=== PATIENT | female | born 1995 | race Caucasian/White ===

== ENCOUNTER 2017-08-23 18:05 | Emergency (ER) | payer MEDICAID ==
[2017-08-23] MEDS: SOD CHLORIDE 0.9% 1,000 ML IV (19:47)
[2017-08-23] MEDS: ONDANSETRON 4 MG INJ IV (19:47)
[2017-08-23 19:48] LABS: ADD MAN DIFF? NO
[2017-08-23] MEDS: morphine 4 MG/ML VIAL IV (19:48)
[2017-08-23 19:51] LABS: WHITE BLOOD COUNT 13.1 10^3/ul (4.8-10.8)
[2017-08-23 19:51] LABS: BASOPHIL # 0.1 10^3/ul (0.0-0.1); BASOPHILS % 0.4 % (0.0-2.0); EOSINOPHILS # 0.5 10^3/ul (0.0-0.5); EOSINOPHILS % 3.5 % (0.0-7.0); HEMOGLOBIN 12.9 g/dl (12.0-16.0); LYMPHOCYTES # 2.1 10^3/ul (0.8-2.9); LYMPHOCYTES % 15.8 % (18.0-55.0); MEAN CORPUSCULAR HEMOGLOBIN 26.5 pg (29.0-33.0); MEAN CORPUSCULAR HGB CONC 33.9 g/dl (32.0-37.0); MEAN CORPUSCULAR VOLUME 78.2 fl (72.0-104.0); MEAN PLATELET VOLUME 8.9 fl (7.4-10.4); MONOCYTE # 0.6 10^3/ul (0.3-0.9); MONOCYTES % 4.6 % (0.0-13.0); NEUTROPHIL # 9.9 10^3/ul (1.6-7.5); NEUTROPHILS % 75.4 % (30.0-74.0); PLATELET COUNT 321 10^3/UL (140-415); RED BLOOD COUNT 4.86 10^6/ul (4.20-5.40)
[2017-08-23 19:53] LABS: ADD UMIC YES; UR ASCORBIC ACID NEGATIVE (NEGATIVE); UR BACTERIA FEW /HPF (NONE SEEN); UR BILIRUBIN (Dip) NEGATIVE (NEGATIVE); UR BLOOD (Dip) NEGATIVE (NEGATIVE); UR CLARITY CLEAR (CLEAR); UR COLOR YELLOW (YELLOW); UR GLUCOSE (Dip) NEGATIVE (NEGATIVE); UR KETONES (Dip) 1+ mg/dL (NEGATIVE); UR LEUKOCYTE ESTERASE (Dip) TRACE Leu/ul (NEGATIVE); UR MUCUS FEW /HPF (NONE SEEN); UR NITRITE (Dip) NEGATIVE (NEGATIVE); UR RBC 1 /HPF (0-5); UR SPECIFIC GRAVITY (Dip) 1.026 (1.003-1.030); UR TOTAL PROTEIN (Dip) NEGATIVE (NEGATIVE); UR UROBILINOGEN (Dip) NEGATIVE (NEGATIVE); UR WBC 4 /HPF (0-5)
[2017-08-23 20:07] LABS: ALANINE AMINOTRANSFERASE 32 IU/L (13-69); ALBUMIN/GLOBULIN RATIO 1.42; ALKALINE PHOSPHATASE 162 IU/L (42-121); ANION GAP 17 (8-16); ASPARTATE AMINO TRANSFERASE 21 IU/L (15-46); BILIRUBIN,INDIRECT 0.2 mg/dl (0-1.1); BILIRUBIN,TOTAL 0.2 mg/dl (0.2-1.3); BLOOD UREA NITROGEN 17 mg/dl (7-20); CALCIUM 9.5 mg/dl (8.4-10.2); CARBON DIOXIDE 26 mmol/L (21-31); CHLORIDE 104 mmol/L (97-110); CREATININE 0.79 mg/dl (0.44-1.00); GLUCOSE 97 mg/dl (70-220); LIPASE 144 U/L (23-300); POTASSIUM 4.1 mmol/L (3.5-5.1); SODIUM 143 mmol/L (135-144); TOTAL PROTEIN 8.5 g/dl (6.1-8.1)
== END 2017-08-23 21:40 | disposition home or self-care (01) ==
LOC: FTE 18:05
DX: K80.20 Calculus of gallbladder without cholecystitis without obstruction (principal)
CPT/HCPCS: 36415; 76705; 80053; 81001; 81025; 83690; 85025; 96374; 96375; 99285-25

== ENCOUNTER 2017-12-24 06:06 | Inpatient (IN) | payer MEDICAID ==
[2017-12-24] MEDS: FAMOTIDINE 20 MG INJ IV (06:45)
[2017-12-24] MEDS: morphine 4 MG/ML VIAL IV (06:45)
[2017-12-24] MEDS: ONDANSETRON 4 MG INJ IV ×2 (06:46→13:38)
[2017-12-24 06:54] LABS: ADD MAN DIFF? NO
[2017-12-24 06:57] LABS: WHITE BLOOD COUNT 16.4 10^3/ul (4.8-10.8)
[2017-12-24 06:57] LABS: BASOPHILS % 0.2 % (0.0-2.0); EOSINOPHILS # 0.3 10^3/ul (0.0-0.5); HEMATOCRIT 41.7 % (37.0-47.0); HEMOGLOBIN 13.7 g/dl (12.0-16.0); LYMPHOCYTES # 1.8 10^3/ul (0.8-2.9); LYMPHOCYTES % 10.7 % (18.0-55.0); MEAN CORPUSCULAR HEMOGLOBIN 27.2 pg (29.0-33.0); MEAN CORPUSCULAR HGB CONC 32.9 g/dl (32.0-37.0); MEAN CORPUSCULAR VOLUME 82.9 fl (72.0-104.0); MEAN PLATELET VOLUME 9.4 fl (7.4-10.4); MONOCYTE # 0.8 10^3/ul (0.3-0.9); MONOCYTES % 4.7 % (0.0-13.0); NEUTROPHIL # 13.4 10^3/ul (1.6-7.5); PLATELET COUNT 333 10^3/UL (140-415); RED BLOOD COUNT 5.03 10^6/ul (4.20-5.40); RED CELL DISTRIBUTION WIDTH 13.1 % (11.5-14.5)
[2017-12-24 07:01] LABS: ADD UMIC NO; UR ASCORBIC ACID NEGATIVE (NEGATIVE); UR BILIRUBIN (Dip) NEGATIVE (NEGATIVE); UR BLOOD (Dip) NEGATIVE (NEGATIVE); UR CLARITY CLEAR (CLEAR); UR COLOR YELLOW (YELLOW); UR GLUCOSE (Dip) NEGATIVE (NEGATIVE); UR KETONES (Dip) NEGATIVE (NEGATIVE); UR LEUKOCYTE ESTERASE (Dip) NEGATIVE Leu/ul (NEGATIVE); UR NITRITE (Dip) NEGATIVE (NEGATIVE); UR SPECIFIC GRAVITY (Dip) 1.021 (1.003-1.030); UR TOTAL PROTEIN (Dip) NEGATIVE (NEGATIVE); UR UROBILINOGEN (Dip) NEGATIVE (NEGATIVE)
[2017-12-24 07:20] LABS: ALANINE AMINOTRANSFERASE 49 IU/L (13-69); ALBUMIN/GLOBULIN RATIO 1.72; ALKALINE PHOSPHATASE 132 IU/L (42-121); ANION GAP 14 (8-16); ASPARTATE AMINO TRANSFERASE 94 IU/L (15-46); BILIRUBIN,INDIRECT 0.5 mg/dl (0-1.1); BILIRUBIN,TOTAL 0.5 mg/dl (0.2-1.3); BLOOD UREA NITROGEN 10 mg/dl (7-20); CALCIUM 9.5 mg/dl (8.4-10.2); CARBON DIOXIDE 26 mmol/L (21-31); CHLORIDE 110 mmol/L (97-110); CREATININE 0.69 mg/dl (0.44-1.00); GLUCOSE 111 mg/dl (70-220); LIPASE 141 U/L (23-300); POTASSIUM 3.8 mmol/L (3.5-5.1); SODIUM 146 mmol/L (135-144); TOTAL PROTEIN 7.9 g/dl (6.1-8.1)
[2017-12-24] MEDS: SOD CHLORIDE 0.9% 1,000 ML IV ×4 (07:44→13:43)
[2017-12-24] MEDS: PIPER-TAZO 3.375 GM IV (PMX) 100 ML IVPB ×3 (08:52→21:51)
[2017-12-24] MEDS ORDERED: ONDANSETRON 4 MG INJ IV (09:30)
[2017-12-24] MEDS ORDERED: ACETAMINOPHEN 325 MG TAB PO (09:30)
[2017-12-24] MEDS ORDERED: NACL 0.9% 3 ML SYG IV (10:00)
[2017-12-24 11:09] LABS: CHOLESTEROL 116 mg/dl (100-200)
[2017-12-24 11:09] LABS: CHOL/HDL RATIO 2.2 RATIO; HDL CHOLESTEROL 51 mg/dl (33-83); LDL CHOLESTEROL,CALCULATED 56 mg/dl; TRIGLYCERIDES 47 mg/dl (0-149)
[2017-12-24 11:15] LABS: HEMOGLOBIN A1C 5.1 % (0-5.9)
[2017-12-24] MEDS: morphine 2 MG INJ IV (13:38)
[2017-12-24 14:00] LABS: FREE T4 (FREE THYROXINE) 1.24 ng/dl (0.79-2.35)
[2017-12-24] MEDS ORDERED: ROCURONIUM 50 MG INJ (21:55)
[2017-12-24] MEDS ORDERED: CEFAZOLIN 1 GM INJ (21:55)
[2017-12-24] MEDS ORDERED: PROPOFOL 20 ML (21:55)
[2017-12-24] MEDS ORDERED: ROPIVACAINE 0.2% 20 ML VIAL (21:56)
[2017-12-24] MEDS ORDERED: FENTAnyl 50 MCG/ML VIAL (21:56)
[2017-12-24] MEDS ORDERED: MIDAZOLAM 1 MG/ML 2 ML INJ (21:56)
[2017-12-25] MEDS ORDERED: FENTAnyl 50 MCG/ML VIAL (00:13)
[2017-12-25] MEDS ORDERED: ONDANSETRON 4 MG INJ (00:31)
[2017-12-25] MEDS ORDERED: METOCLOPRAMIDE 10 MG INJ (00:31)
[2017-12-25] MEDS ORDERED: DEXAMETHASONE 4 MG/ML 1 ML INJ (00:32)
[2017-12-25] MEDS ORDERED: KETOROLAC 30 MG INJ (00:32)
[2017-12-25] MEDS ORDERED: GLYCOPYRROLATE 0.4 MG INJ (00:54)
[2017-12-25] MEDS ORDERED: NEOSTIGMINE 3 MG/3 ML SYRINGE (00:54)
[2017-12-25] MEDS ORDERED: ACETAMINOPHEN 1000MG/100ML IV 100 ML (01:21)
[2017-12-25] MEDS: ACETAMINOPHEN 1000MG/100ML IV 100 ML IVPB (01:29)
[2017-12-25] MEDS: ONDANSETRON 4 MG INJ IV (01:30)
[2017-12-25] MEDS: SOD CHLORIDE 0.9% 1,000 ML IV (02:29)
[2017-12-25] MEDS: morphine 2 MG INJ IV ×3 (04:35→09:09)
[2017-12-25 05:31] LABS: ADD MAN DIFF? NO
[2017-12-25 05:34] LABS: BASOPHILS % 0.2 % (0.0-2.0); HEMATOCRIT 38.4 % (37.0-47.0); HEMOGLOBIN 12.6 g/dl (12.0-16.0); LYMPHOCYTES # 0.6 10^3/ul (0.8-2.9); LYMPHOCYTES % 5.2 % (18.0-55.0); MEAN CORPUSCULAR HEMOGLOBIN 26.9 pg (29.0-33.0); MEAN CORPUSCULAR HGB CONC 32.8 g/dl (32.0-37.0); MEAN CORPUSCULAR VOLUME 82.1 fl (72.0-104.0); MEAN PLATELET VOLUME 9.8 fl (7.4-10.4); MONOCYTE # 0.2 10^3/ul (0.3-0.9); MONOCYTES % 1.6 % (0.0-13.0); NEUTROPHIL # 11.2 10^3/ul (1.6-7.5); NEUTROPHILS % 92.7 % (30.0-74.0); PLATELET COUNT 266 10^3/UL (140-415); RED BLOOD COUNT 4.68 10^6/ul (4.20-5.40); RED CELL DISTRIBUTION WIDTH 13.2 % (11.5-14.5)
[2017-12-25 06:09] LABS: PHOSPHORUS 3.5 mg/dl (2.5-4.9)
[2017-12-25 06:09] LABS: MAGNESIUM 1.5 mg/dl (1.7-2.5)
[2017-12-25] MEDS: PIPER-TAZO 3.375 GM IV (PMX) 100 ML IVPB ×3 (06:14→22:00)
[2017-12-25 06:25] LABS: ALANINE AMINOTRANSFERASE 167 IU/L (13-69); ALBUMIN 4.5 g/dl (3.3-4.9); ALBUMIN/GLOBULIN RATIO 1.73; ALKALINE PHOSPHATASE 120 IU/L (42-121); ANION GAP 15 (8-16); ASPARTATE AMINO TRANSFERASE 133 IU/L (15-46); BILIRUBIN,INDIRECT 0.9 mg/dl (0-1.1); BILIRUBIN,TOTAL 0.9 mg/dl (0.2-1.3); BLOOD UREA NITROGEN 7 mg/dl (7-20); CALCIUM 8.8 mg/dl (8.4-10.2); CARBON DIOXIDE 21 mmol/L (21-31); CHLORIDE 111 mmol/L (97-110); CREATININE 0.68 mg/dl (0.44-1.00); GLUCOSE 100 mg/dl (70-220); POTASSIUM 3.4 mmol/L (3.5-5.1); SODIUM 144 mmol/L (135-144); TOTAL PROTEIN 7.1 g/dl (6.1-8.1)
[2017-12-25] MEDS: POTASSIUM CHLORIDE (SR) 10 MEQ TAB PO (09:08)
[2017-12-25] MEDS: MAGNESIUM SULFATE 3 GM in DEXTROSE 5% 100 ML IVPB (10:42)
[2017-12-25] MEDS: HYDROCODONE/APAP (5/325) TAB PO ×2 (13:32→18:32)
[2017-12-25] MEDS: ACETAMINOPHEN 325 MG TAB PO (16:33)
[2017-12-26] MEDS: HYDROCODONE/APAP (5/325) TAB PO ×2 (02:42→09:55)
[2017-12-26] MEDS: PIPER-TAZO 3.375 GM IV (PMX) 100 ML IVPB ×2 (05:47→14:41)
[2017-12-26 05:49] LABS: ADD MAN DIFF? NO
[2017-12-26 05:55] LABS: BASOPHILS % 0.3 % (0.0-2.0); EOSINOPHILS # 0.1 10^3/ul (0.0-0.5); EOSINOPHILS % 1.4 % (0.0-7.0); HEMATOCRIT 38.9 % (37.0-47.0); HEMOGLOBIN 12.5 g/dl (12.0-16.0); LYMPHOCYTES # 3.7 10^3/ul (0.8-2.9); LYMPHOCYTES % 38.3 % (18.0-55.0); MEAN CORPUSCULAR HEMOGLOBIN 26.8 pg (29.0-33.0); MEAN CORPUSCULAR HGB CONC 32.1 g/dl (32.0-37.0); MEAN CORPUSCULAR VOLUME 83.3 fl (72.0-104.0); MEAN PLATELET VOLUME 9.7 fl (7.4-10.4); MONOCYTE # 0.7 10^3/ul (0.3-0.9); NEUTROPHIL # 5.1 10^3/ul (1.6-7.5); NEUTROPHILS % 52.8 % (30.0-74.0); PLATELET COUNT 294 10^3/UL (140-415); RED BLOOD COUNT 4.67 10^6/ul (4.20-5.40); RED CELL DISTRIBUTION WIDTH 13.6 % (11.5-14.5)
[2017-12-26 05:55] LABS: WHITE BLOOD COUNT 9.7 10^3/ul (4.8-10.8)
[2017-12-26 06:16] LABS: ALANINE AMINOTRANSFERASE 127 IU/L (13-69); ALBUMIN 4.1 g/dl (3.3-4.9); ALBUMIN/GLOBULIN RATIO 1.41; ALKALINE PHOSPHATASE 98 IU/L (42-121); ANION GAP 12 (8-16); ASPARTATE AMINO TRANSFERASE 61 IU/L (15-46); BILIRUBIN,INDIRECT 0.6 mg/dl (0-1.1); BILIRUBIN,TOTAL 0.6 mg/dl (0.2-1.3); BLOOD UREA NITROGEN 12 mg/dl (7-20); CARBON DIOXIDE 27 mmol/L (21-31); CHLORIDE 108 mmol/L (97-110); CREATININE 0.91 mg/dl (0.44-1.00); GLUCOSE 98 mg/dl (70-220); POTASSIUM 3.9 mmol/L (3.5-5.1); SODIUM 143 mmol/L (135-144)
[2017-12-26 06:21] LABS: PHOSPHORUS 4.7 mg/dl (2.5-4.9)
[2017-12-26 06:21] LABS: MAGNESIUM 2.1 mg/dl (1.7-2.5)
== END 2017-12-26 17:24 | disposition home or self-care (01) | DRG 419 ==
LOC: FTE 06:06 → PP2 09:14
PROC: 0FT44ZZ Resection of Gallbladder, Percutaneous Endoscopic Approach (ICD-10-PCS; principal; 2017-12-24 23:44)
DX: K81.0 Acute cholecystitis (principal)
CPT/HCPCS: 36415; 76705; 80053; 80061; 81003; 81025; 83036; 83690; 83735; 84100; 84439; 84443; 85025; 88304; 96361; 96365; 96375; 99285-25

== ENCOUNTER 2018-08-28 20:38 | Emergency (ER) | payer SELFPAY, MEDICAID ==
[2018-08-29] MEDS: ONDANSETRON (ODT) 4 MG TAB ODT (01:01)
[2018-08-29] MEDS: FAMOTIDINE 20 MG TAB PO (01:04)
[2018-08-29] MEDS: LIDOCAINE/MYLANTA 40 ML BTL PO (01:04)
[2018-08-29 01:44] LABS: ADD UMIC NO; UR ASCORBIC ACID NEGATIVE (NEGATIVE); UR BILIRUBIN (Dip) NEGATIVE (NEGATIVE); UR BLOOD (Dip) NEGATIVE (NEGATIVE); UR CLARITY SLIGHTLY CLOUDY (CLEAR); UR COLOR YELLOW (YELLOW); UR GLUCOSE (Dip) NEGATIVE (NEGATIVE); UR KETONES (Dip) TRACE mg/dL (NEGATIVE); UR LEUKOCYTE ESTERASE (Dip) NEGATIVE Leu/ul (NEGATIVE); UR MUCUS FEW /HPF (NONE SEEN); UR NITRITE (Dip) NEGATIVE (NEGATIVE); UR RBC 2 /HPF (0-5); UR SPECIFIC GRAVITY (Dip) 1.027 (1.003-1.030); UR SQUAMOUS EPITHELIAL CELL FEW /HPF (FEW); UR TOTAL PROTEIN (Dip) NEGATIVE (NEGATIVE); UR UROBILINOGEN (Dip) NEGATIVE (NEGATIVE); UR WBC 5 /HPF (0-5)
[2018-08-29] MEDS: traMADol 50 MG TAB PO (03:10)
[2018-08-29] MEDS: KETOROLAC 30 MG INJ IM (03:10)
== END 2018-08-29 03:17 | disposition home or self-care (01) ==
LOC: FTE 20:38
DX: R10.13 Epigastric pain (principal)
CPT/HCPCS: 81001; 81003; 81025; 96372; 99284-25